=== PATIENT | female | born 1980 | race Caucasian/White ===

== ENCOUNTER 2017-11-18 10:33 | Emergency (ER) | payer OTHER ==
[~2017-11-18] VITALS: Ht 157.5 cm; Wt 81.6 kg
[2017-11-18] MEDS ORDERED: COZAAR100 MG (10:54)
[2017-11-18] MEDS ORDERED: PROVERA2.5 MG PO (19:59)
[2017-11-18] MEDS ORDERED: IRON1TAB4 PO (20:00)
== END 2017-11-18 21:00 | disposition home or self-care (01) ==
LOC: ER 10:33
DX: D25.1 Intramural leiomyoma of uterus (principal); N93.8 Other specified abnormal uterine and vaginal bleeding; R10.2 Pelvic and perineal pain; D50.0 Iron deficiency anemia secondary to blood loss (chronic)

== ENCOUNTER → 2017-12-28 | Emergency (ER) | payer OTHER ==
[~2017-12-28] VITALS: Ht 157.5 cm; Wt 81.6 kg
[~2017-12-28] MED LIST: COZAAR100 MG; IRON1TAB4 PO; PROVERA2.5 MG PO
== END | disposition home or self-care (01) ==
LOC: ER 20:04
DX: D64.89 Other specified anemias (principal); N92.1 Excessive and frequent menstruation with irregular cycle; D28.2 Benign neoplasm of uterine tubes and ligaments

== ENCOUNTER → 2018-11-24 | Emergency (ER) | payer OTHER ==
[~2018-11-24] VITALS: Ht 157.5 cm; Wt 83.9 kg
== END | disposition home or self-care (01) ==
LOC: ER 17:55
DX: D64.9 Anemia, unspecified (principal)

== ENCOUNTER 2019-07-09 15:59 | Emergency (ER) | payer OTHER ==
[~2019-07-09] VITALS: Ht 157.5 cm; Wt 81.6 kg
== END 2019-07-09 20:33 | disposition home or self-care (01) ==
LOC: ER 15:59
DX: J11.1 Influenza due to unidentified influenza virus with other respiratory manifestations (principal)

== ENCOUNTER 2021-01-03 16:40 | Emergency (ER) | payer OTHER ==
[~2021-01-03] VITALS: Ht 157.5 cm; Wt 84.4 kg
== END 2021-01-03 22:36 | disposition home or self-care (01) ==
LOC: ER 16:40
DX: R50.9 Fever, unspecified (principal); Z20.822 Contact with and (suspected) exposure to COVID-19